=== PATIENT | male | born 1995 | race African-American/Black ===

== ENCOUNTER 2022-07-13 07:23 | Emergency (ER) | payer BC, OTHER | END 2022-07-13 10:00 | disposition home or self-care (01) | LOC: NAV ERS 07:23 | DX: B34.9 Viral infection, unspecified (principal); K21.9 Gastro-esophageal reflux disease without esophagitis; F17.200 Nicotine dependence, unspecified, uncomplicated; Z20.822 Contact with and (suspected) exposure to COVID-19; Z79.899 Other long term (current) drug therapy | CPT/HCPCS: 71046; 87804; 93005; U0003; U0005 ==